=== PATIENT | female | born 1990 ===

== ENCOUNTER 2024-01-02 12:07 | Emergency (ER) | payer BC ==
[2024-01-02] MEDS ORDERED: ONDANSETRON 4 MG/2 ML VIAL ONE (12:46)
[2024-01-02] MEDS ORDERED: KETOROLAC 15 MG/ML 1 ML VIAL ONE (12:46)
[2024-01-02] MEDS ORDERED: diphenhydrAMINE 50 MG/ML 1 ML VIAL ONE (12:47)
[2024-01-02] MEDS ORDERED: SODIUM CHLORIDE 0.9% 1,000 ML BAG ONE (13:03)
--- NOTE | 2024-01-25 08:07 | CT ---
Report Patient: Vielka Garcia Ordering Physician: Unknown, Unknown ID: [id number] Phone, Pager: Phone: N/A Pager: N/A : 1990 Age/Gender: 33Y, F Primary Location: N/A Procedure: CT brain wo con Study Date: 01/02/2024 2:08:00 PM EXAMINATION TYPE: CT brain wo con DATE OF EXAM: 01/02/2024 COMPARISON: None HISTORY: 33-year-old female headache, palpitations TECHNIQUE: Examination was done in axial plane without intravenous contrast. Coronal and sagittal r econstructions performed. CT DLP: 1125.4 mGycm Automated exposure control for dose reduction was used. FINDINGS: There is a large CSF space along the median and right paramedian posterior cranial fossa located just below the tentorium cerebelli. There appears to be mass effect with inferior displacement of the cer ebellum. Secondary cerebellar tonsillar ectopia on the right 4 to 5 mm and on the left of 3 mm. There may be s light mass effect onto the dorsal midbrain as well. This area measures 4.0 cm wide by 5.1 cm AP by 4. 0 cm craniocaudal (refer to coronal image 44 and sagittal image 35). Otherwise, no evidence for acute intracranial hemorrhage, acute ischemic change, midline shift, or ot her extra-axial fluid collection. No hydrocephalus. No effacement of cerebral sulci. Tyler-white matte r differentiation is maintained. Paranasal sinuses and mastoid air cells well pneumatized orbits and globes are intact. IMPRESSION: 1. Large CSF space in the posterior cranial fossa below the tentorium cerebelli measuring 5.1 x 4.0 x 4.0 cm. This appears to displace the cerebellum inferiorly and may have some mass effect onto the do rsal midbrain as well. 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 Findings suspected to repres ent a large arachnoid cyst with mass effect. Consider neurosurgical evaluation. 2. No midline shift or hydrocephalus. No other acute intracranial abnormality seen.
== END 2024-01-02 15:45 | disposition home or self-care (01) ==
LOC: EC 12:07
DX: R00.2 Palpitations (principal)
CPT/HCPCS: 70450; 93005; 96361; 96374; 99285